=== PATIENT | female | born 1955 | race American Indian/Alaskan Native ===

== ENCOUNTER 2022-01-09 17:51 | Emergency (ER) | payer MEDICARE, OTHER ==
[2022-01-09] MEDS ORDERED: ACETAMINOPHEN 325 MG TAB PO ONE (18:16)
[2022-01-09 20:52] LABS: Basophils % (Auto) 0.2 % (0.0-1.8); Hematocrit 43.2 % (30.3-42.9); Hemoglobin 14.2 gm/dl (10.1-14.3); Lymphocytes # (Auto) 0.8 K/mm3 (1.2-5.4); Mean Corpuscular HGB Conc 33 % (30-34); Mean Corpuscular Volume 83 fl (79-97); Monocytes # (Auto) 1.7 K/mm3 (0.0-0.8); Monocytes % (Auto) 15.9 % (0.0-7.3); Platelet Count 286 K/mm3 (140-440); Red Cell Distribution Width 16.2 % (13.2-15.2)
[2022-01-09 20:59] LABS: BUN/Creatinine Ratio 19; Blood Urea Nitrogen 17 mg/dL (7-17); Calcium 9.2 mg/dL (8.4-10.2); Hemolysis Index 5
[2022-01-09 21:26] LABS: Alanine Aminotransferase 24 units/L (7-56); Albumin 4.4 g/dL (3.9-5); Bilirubin,Direct 0.4 mg/dL (0-0.2)
--- NOTE | 2022-01-09 21:27 | XRay Report ---
XR chest 1V ap INDICATION / CLINICAL INFORMATION: fever. COMPARISON: None available. FINDINGS: SUPPORT DEVICES: None. HEART /PULMONARY VASCULATURE: No significant abnormality. LUNGS / PLEURA: Mild asymmetric airspace opacities in the left lung base. Right lung is clear. No siz able pleural effusion. No pneumothorax. IMPRESSION: Mild airspace opacities in the left lung base, may reflect pneumonia. Signer Name: Richard Romero MD Signed: 01/09/2022 9:23 PM Workstation Name: [id number]
[2022-01-09 22:45] VITALS: BP 122/77
[2022-01-09] MEDS ORDERED: AZITHROMYCIN 250 MG TAB PO ONE (23:26)
[2022-01-09] MEDS ORDERED: LIDOCAINE-MPF (1%) 10 MG/1 ML VIAL 5 ML INFILTRATI ONE (23:26)
[2022-01-09 23:34] LABS: Bilirubin,Urine NEG (Negative); Blood,Urine MOD (Negative); Color,Urine Yellow (Yellow); Mucus,Urine FEW /HPF; Red Blood Cell Casts,Urine 5 /LPF; Urobilinogen,Urine < 2.0 mg/dL (<2.0)
--- NOTE | 2022-01-10 00:59 | Emergency Department Report ---
ED General Adult HPI - General Chief complaint: Fever Stated complaint: DIZZINESS Source: patient Mode of arrival: Ambulatory Limitations: No Limitations - History of Present Illness Initial comments: Patient is a 66-year-old -Citizen Of The [place] female with a history of non-insulin- dependent diabetes who presents to the ED with complaint of acute onset persistent generalized weakness, diffuse body aches and pains, fever and chills, lightheadedness and lack of appetite for the last 5 days. Patient states that the symptoms have worsened in the last 2 days. Patient denies nasal and sinus congestion, headache, dizziness, syncope, chest pain or shortness of breath, wheezing, cough, sore throat, nausea and vomiting or diarrhea, abdominal pain, dysuria, urinary frequency and urgency. MD Complaint: Generalized weakness, lack of appetite, lightheadedness, fever and chills -: Sudden, days(s) (5) Location: head Radiation: non-radiation Severity scale (0 -10): 3 Quality: aching, dull Consistency: constant Improves with: none Worsens with: none Associated Symptoms: denies other symptoms, fever/chills, loss of appetite, malaise, weakness. denies: confusion, chest pain, cough, diaphoresis, headaches, nausea/vomiting, rash, seizure, shortness of breath, syncope Treatments Prior to Arrival: none - Related Data Previous Rx's Medication Instructions Recorded Last Taken Type Acetaminophen [Tylenol] 500 mg PO Q6HR PRN #30 tablet 01/10/22 Unknown Rx Ondansetron [Zofran Odt] 4 mg PO Q8HR PRN #15 tab.rapdis 01/10/22 Unknown Rx levoFLOXacin [Levaquin TAB] 500 mg PO QDAY #10 tablet 01/10/22 Unknown Rx Allergies Allergy/AdvReac Type Severity Reaction Status Date / Time No Known Allergies Allergy Verified 01/09/22 18:12 ED Review of Systems ROS: Stated complaint: DIZZINESS Other details as noted in HPI Constitutional: chills, fever, malaise, weakness Eyes: denies: eye pain, eye discharge, vision change ENT: denies: ear pain, throat pain, dental pain, hearing loss, congestion Respiratory: denies: cough, shortness of breath, SOB with exertion, wheezing Cardiovascular: denies: chest pain, palpitations Endocrine: no symptoms reported Gastrointestinal: denies: abdominal pain, nausea, vomiting, diarrhea Genitourinary: denies: urgency, dysuria, frequency, hematuria, discharge Musculoskeletal: denies: back pain, joint swelling, arthralgia Skin: denies: rash, lesions, change in color Neurological: denies: headache, weakness, paresthesias, abnormal gait, vertigo Psychiatric: denies: anxiety, depression Hematological/Lymphatic: denies: easy bleeding, easy bruising ED Past Medical Hx - Past Medical History Previous Medical History?: Yes Hx Diabetes: Yes - Medications Home Medications: Home Medications Medication Instructions Recorded Confirmed Last Taken Type Acetaminophen [Tylenol] 500 mg PO Q6HR PRN #30 tablet 01/10/22 Unknown Rx Ondansetron [Zofran Odt] 4 mg PO Q8HR PRN #15 tab.rapdis 01/10/22 Unknown Rx levoFLOXacin [Levaquin TAB] 500 mg PO QDAY #10 tablet 01/10/22 Unknown Rx ED Physical Exam - General Limitations: No Limitations General appearance: alert, in no apparent distress, other (Febrile and tachycardic) - Head Head exam: Present: atraumatic, normocephalic, normal inspection - Eye Eye exam: Present: normal appearance, PERRL, EOMI Pupils: Present: normal accommodation - ENT ENT exam: Present: normal exam, normal orophraynx, mucous membranes moist, TM's normal bilaterally, normal external ear exam - Neck Neck exam: Present: normal inspection, full ROM. Absent: tenderness - Respiratory Respiratory exam: Present: normal lung sounds bilaterally. Absent: respiratory distress, wheezes, rales, rhonchi, stridor, chest wall tenderness, accessory muscle use, decreased breath sounds, prolonged expiratory - Cardiovascular Cardiovascular Exam: Present: normal rhythm, tachycardia, normal heart sounds. Absent: systolic murmur, diastolic murmur, rubs, gallop - GI/Abdominal GI/Abdominal exam: Present: soft, normal bowel sounds. Absent: tenderness, guarding, rebound, hyperactive bowel sounds, hypoactive bowel sounds, organomegaly, mass - Extremities Exam Extremities exam: Present: normal inspection, full ROM, normal capillary refill. Absent: tenderness - Back Exam Back exam: Present: normal inspection, full ROM. Absent: tenderness, CVA tenderness (R), CVA tenderness (L), muscle spasm, paraspinal tenderness, vertebral tenderness - Neurological Exam Neurological exam: Present: alert, oriented X3, CN II-XII intact, normal gait, reflexes normal - Psychiatric Psychiatric exam: Present: normal affect, normal mood - Skin Skin exam: Present: warm, dry, intact, normal color. Absent: rash ED Course Vital Signs 01/09/22 01/09/22 01/09/22 18:13 19:23 22:43 Temperature 101.3 F H 99.7 F H 99.2 F Pulse Rate 125 H 102 H Respiratory 16 18 Rate Blood Pressure 137/74 122/77 [Left] O2 Sat by Pulse 96 98 Oximetry ED Medical Decision Making - Lab Data Result diagrams: 01/09/22 19:57 01/09/22 19:57 - Radiology Data Radiology results: report reviewed, [place] [address] XRay Report Signed Patient: KIN BARROS MR#: [id number] 64 : 1955 Acct:[id number] Age/Sex: 66 / F ADM Date: 01/09/22 Loc: ED Attending Dr: Ordering Physician: THOR ROJAS Date of Service: 01/09/22 Procedure(s): XR chest 1V ap Accession Number(s): [id number] cc: THOR ROJAS Fluoro Time In Minutes: XR chest 1V ap INDICATION / CLINICAL INFORMATION: fever. COMPARISON: None available. FINDINGS: SUPPORT DEVICES: None. HEART /PULMONARY VASCULATURE: No significant abnormality. LUNGS / PLEURA: Mild asymmetric airspace opacities in the left lung base. Right lung is clear. No sizable pleural effusion. No pneumothorax. IMPRESSION: Mild airspace opacities in the left lung base, may reflect pneumonia. Signer Name: Carlos Romero MD Signed: 01/09/2022 9:23 PM Workstation Name: [id number] Transcribed By: JS Dictated By: CARLOS ROMERO MD Electronically Authenticated By: CARLOS ROMERO MD Signed Date/Time: 01/09/222122 DD/ 21 TD/TT: - Medical Decision Making This is a 66-year-old -Citizen Of The [place] female with a history of tia-sapdheg-ajrgzhiul diabetes who presents to the ED with complaint of acute onset persistent generalized weakness, diffuse body aches and pains, fever and chills, lightheadedness and lack of appetite for the last 5 days. Patient states that the symptoms have worsened in the last 2 days. In the ED, patient is alert and oriented x3 and is not in any distress. Patient is however tachycardic and febrile in triage. Blood test results were reviewed and are all nonactionable. Patient was treated for fever in the ED. Chest x-ray showed mild airspace opacities in the left lung base, may reflect pneumonia. Patient also received Rocephin 1 g intramuscular injection and azithromycin 500 mg p.o. x1. On reevaluation, patient's tachycardia resolved and fever also resolved. Patient was discharged home on medications including antibiotics and antipyretics and was advised to follow-up with her primary care physician in 5 to 7 days for reevaluation or return to the ED immediately if symptoms get worse. - Differential Diagnosis Influenza; pneumonia; URI; UTI; Critical care attestation.: If time is entered above; I have spent that time in minutes in the direct care of this critically ill patient, excluding procedure time. ED Disposition Clinical Impression: Fever and chills, Generalized weakness Left lower lobe pneumonia Qualifiers: Pneumonia type: due to unspecified organism Qualified Code(s): J18.9 - Pneumonia, unspecified organism Disposition: 01 HOME / SELF CARE / HOMELESS Is pt being admited?: No Does the pt Need Aspirin: No Condition: Stable Instructions: Bacterial Pneumonia (ED), Weakness, [id number], Fever, Adult, [id number], Community-Acquired Pneumonia, Adult, [id number] Additional Instructions: All lab test results were reviewed and are all nonactionable. Chest x-ray showed mild airspace opacities in the left lung base, may reflect pneumonia. Therefore take medication with food, drink plenty of fluids, follow-up with your primary care physician in 5 to 7 days for reevaluation. Return to the ED immediately if symptoms get worse. Prescriptions: Acetaminophen [Tylenol] 500 mg PO Q6HR PRN #30 tablet PRN Reason: fever or pain levoFLOXacin [Levaquin TAB] 500 mg PO QDAY #10 tablet Ondansetron [Zofran Odt] 4 mg PO Q8HR PRN #15 tab.rapdis PRN Reason: Nausea Referrals: MICHELLE TERAN MD [Staff Physician] - 7-10 days Time of Disposition: 01:00 Print Language: CENTRAL AFRICAN
--- NOTE | 2022-01-11 10:38 | Electrocardiograph Report ---
[facility] Test Date: 2022-01-09 Test Time: 18:22:19 Pat Name: KIN BARROS Department: Room: Gender: F Strategy Consultant: DEION : 1955 Requested By: WALT RICHARDSON Order Number: [id number] Reading MD: Klarissa Ha Measurements Intervals [place] Rate: 108 P: 63 MN: 138 QRS: 27 QRSD: 98 T: 6 QT: 315 QTc: 422 Interpretive Statements Sinus tachycardia No previous ECG available for comparison Electronically Signed On 01-11-2022 10:38:21 EDT by Klarissa Ha
== END 2022-01-10 08:05 | disposition home or self-care (01) ==
LOC: ED 17:51
DX: J18.9 Pneumonia, unspecified organism (principal); M79.18 Myalgia, other site; R53.1 Weakness; E11.9 Type 2 diabetes mellitus without complications; Z79.899 Other long term (current) drug therapy
CPT/HCPCS: 36415; 71045; 80048; 80076; 81001; 84484; 85025; 93005; 96372; 99284; J0696; J3490